=== PATIENT | female | born 1975 | race Caucasian/White ===

== ENCOUNTER → 2019-03-27 | Outpatient (CLI) | payer OTHER ==
--- NOTE | 2019-03-27 14:34 | MM ---
Reason for exam: screening (asymptomatic). Last mammogram was performed 7 years and 8 months ago. History: Patient has history of other cancer at age 32. Physical Findings: A clinical breast exam by your physician is recommended on an annual basis and results should be correlated with mammographic findings. MG Screening Mammo w CAD Bilateral CC and MLO view(s) were taken. Prior study comparison: August 10, 2011, mammogram, performed at [facility]. August 01, 2011, mammogram, performed at [facility]. The breast tissue is heterogeneously dense. This may lower the sensitivity of mammography. There are benign appearing round calcifications in the right breast. There is no discrete abnormality. ASSESSMENT: Benign, BI-RAD 2 RECOMMENDATION: Routine screening mammogram of both breasts in 1 year.
== END | disposition home or self-care (01) ==
LOC: RADMAMWWP 06:51
PROVIDERS: ATTEND Family Medicine
DX: Z12.31 Encounter for screening mammogram for malignant neoplasm of breast (principal)
CPT/HCPCS: 77067

== ENCOUNTER 2019-10-04 18:11 | Emergency (ER) | payer BC, OTHER ==
[2019-10-04] MEDS ORDERED: KETOROLAC 30 MG/ML 1 ML VIAL IM STA (18:44)
[2019-10-04 19:15] LABS: Appearance,Urine Cloudy (Clear); Bacteria,Urine Rare /hpf; Bilirubin,Urine Negative (Negative); Blood,Urine Negative (Negative); Color,Urine Yellow; Glucose,Urine (UA) Negative (Negative); Leukocyte Esterase,Urine Negative (Negative); Mucus,Urine Many /hpf; Nitrite,Urine Negative (Negative); Protein,Urine Trace (Negative); RBC,Urine 1 /hpf (0-5); Specific Gravity,Urine 1.031 (1.001-1.035); Squamous Epithelial Cell,Urine 9 /hpf (0-4); WBC,Urine 5 /hpf (0-5)
--- NOTE | 2019-10-04 19:16 | XR ---
EXAMINATION TYPE: XR chest 2V DATE OF EXAM: 10/04/2019 COMPARISON: NONE HISTORY: Cough and fever TECHNIQUE: 2 views FINDINGS: Heart and mediastinum are normal. Lungs are clear. Diaphragm is normal. Bony thorax appears normal. IMPRESSION: Normal chest.
[2019-10-04 19:31] VITALS: RESP 18
--- NOTE | 2019-10-04 19:39 | ED ---
Back Pain HPI - General Source: patient Limitations: no limitations <Andrés Jung - Last Filed: 10/05/19 14:36> <Nimco Bui - Last Filed: 10/06/19 11:35> - General Chief Complaint: Back Pain/Injury Stated Complaint: back pain/fever Time Seen by Provider: 10/04/19 18:22 - History of Present Illness Initial Comments: Patient is a 44-year-old female presenting to the emergency department with a chief complaint of back pain. Patient reports the symptoms began about 2 days ago with gradual increase in severity. Patient states pain is located in the lower lumbar region and is radiating distally to the hips and thighs. Patient r eports prior to onset of symptoms, she was cleaning the pool lifting large amounts of debris. Patient reports the pain is exacerbated with left to right rotation and when laying flat. Patient also reports she developed a dry cough over the last day. States she fell warm and has been alternating between Tylenol and Motrin for a possible fever. Patient denies any neck stiffness, severe headaches, sore throat, chest pain or shortness of breath. Denies exposure to known Covid patient. (Andrés Jung) - Related Data Home Medications Medication Instructions Recorded Confirmed Citalopram Hydrobromide [CeleXA] 20 mg PO DAILY 11/06/14 11/06/14 Previous Rx's Medication Instructions Recorded Hydrocodone/Acetaminophen [[place] 1 each PO Q6HR PRN #20 tab 11/06/14 5-325] Allergies Allergy/AdvReac Type Severity Reaction Status Date / Time No Known Allergies Allergy Verified 10/04/19 18:18 Review of Systems ROS Other: All systems not noted in ROS Statement are negative. <Andrés Jung - Last Filed: 10/05/19 14:36> ROS Other: All systems not noted in ROS Statement are negative. <Nimco Bui - Last Filed: 10/06/19 11:35> ROS Statement: Those systems with pertinent positive or pertinent negative responses have been documented in the HPI. Past Medical History Past Medical History: Seizure Disorder History of Any Multi-Drug Resistant Organisms: None Reported Past Surgical History: Appendectomy, Hysterectomy Past Psychological History: No Psychological Hx Reported, Anxiety, Bipolar Smoking Status: Former smoker Past Alcohol Use History: Occasional Past Drug Use History: None Reported <Andrés Jung - Last Filed: 10/05/19 14:36> General Exam Limitations: no limitations General appearance: alert, in no apparent distress Head exam: Present: atraumatic, normocephalic, normal inspection Eye exam: Present: normal appearance, PERRL, EOMI Pupils: Present: normal accommodation ENT exam: Present: normal exam, normal oropharynx, mucous membranes moist Neck exam: Present: normal inspection, full ROM. Absent: tenderness, meningismus, other (No nuchal rigidity.) Respiratory exam: Present: normal lung sounds bilaterally. Absent: respiratory distress, wheezes Cardiovascular Exam: Present: regular rate, normal rhythm, normal heart sounds Extremities exam: Present: normal inspection, full ROM, normal capillary refill, other (+2 ulnar and radial pulses bilaterally.) Back exam: Present: normal inspection, full ROM, tenderness, paraspinal tenderness (Bilateral paraspinal tenderness in the lumbar region radiating dista lly. Pain worse right versus left. Positive leg raise test in her right leg.). Absent: CVA tenderness (R), CVA tenderness (L), vertebral tenderness Neurological exam: Present: alert, oriented X3 Psychiatric exam: Present: normal affect, normal mood Skin exam: Present: warm, dry, intact, normal color <Andrés Jung - Last Filed: 10/05/19 14:36> Course Vital Signs 10/04/19 10/04/19 10/04/19 18:16 19:30 20:46 Temperature 98.9 F 98.9 F 97.4 F L Pulse Rate 91 71 65 Respiratory 16 18 18 Rate Blood Pressure 134/85 135/86 144/88 O2 Sat by Pulse 98 97 100 Oximetry Medical Decision Making - Lab Data Result diagrams: 10/04/19 20:00 10/04/19 20:00 <Andrés Jung - Last Filed: 10/05/19 14:36> - Lab Data Result diagrams: 10/04/19 20:00 10/04/19 20:00 <Nimco Bui - Last Filed: 10/06/19 11:35> - Medical Decision Making Patient is a 44-year-old female presenting to the emergency department with a chief complaint of back pain. This was after patient was working heavily by cleaning the pool. On exam patient has some paraspinal lumbar tenderness that radiates along the lateral aspect of the lower extremities. No saddle anest hesia or urinary or bowel incontinence. No red flags. UA showed plus for ketones. Patient does report drinking less water than usual. CBC CMP unremarkable. Patient was given 2 L of IV bolus. A reevaluation patient reports the back pain has resolved. I suspect some of these musclelike spasms w ere secondary to dehydration. Patient advised to drink lots of fluids. Strict return parameters were thoroughly discussed with patient was understanding and agreeable. Case discussed with physician. (Andrés Jung) I was available for consultation in the emergency department. The history and physical exam were done by the midlevel provider. [facility] I reviewed the case with the midlevel provider and based on their presentation of the patient, I agree with the assessment, medical decision making and plan of care as documented. Patient has no saddle anesthesia or bowel/bladder incontinence. No sgins of cauda equina. Chart was dictated using [employer] dictation software. Attempts were made to correct any dictation errors however some typographical errors may persist. Patient was seen during a national state of emergency due to the Covid-19 pandemic. (Nimco Bui) - Lab Data Lab Results 10/04/19 10/04/19 10/04/19 Range/Units 18:56 20:00 20:00 WBC 7.7 (3.8-10.6) k/uL RBC 5.06 (3.80-5.40) m/uL Hgb 14.2 (11.4-16.0) gm/dL Hct 42.4 (34.0-46.0) % MCV 83.7 (80.0-100.0) fL MCH 28.1 (25.0-35.0) pg MCHC 33.6 (31.0-37.0) g/dL RDW 12.5 (11.5-15.5) % Plt Count 190 (150-450) k/uL Neutrophils % 72 % Lymphocytes % 18 % Monocytes % 6 % Eosinophils % 3 % Basophils % 0 % Neutrophils # 5.5 (1.3-7.7) k/uL Lymphocytes # 1.4 (1.0-4.8) k/uL Monocytes # 0.4 (0-1.0) k/uL Eosinophils # 0.2 (0-0.7) k/uL Basophils # 0.0 (0-0.2) k/uL Sodium 139 (137-145) mmol/L Potassium 4.4 (3.5-5.1) mmol/L Chloride 107 (98-107) mmol/L Carbon Dioxide 24 (22-30) mmol/L Anion Gap 8 mmol/L BUN 13 (7-17) mg/dL Creatinine 0.78 (0.52-1.04) mg/dL Est GFR (CKD-EPI)AfAm >90 (>60 ml/min/1.73 sqM) Est GFR (CKD-EPI)NonAf >90 (>60 ml/min/1.73 sqM) Glucose 93 (74-99) mg/dL Calcium 9.8 (8.4-10.2) mg/dL Total Bilirubin 0.7 (0.2-1.3) mg/dL AST 24 (14-36) U/L ALT 13 (4-34) U/L Alkaline Phosphatase 72 (38-126) U/L Total Protein 8.0 (6.3-8.2) g/dL Albumin 4.7 (3.5-5.0) g/dL Urine Color Yellow Urine Appearance Cloudy H (Clear) Urine pH 6.0 (5.0-8.0) Ur Specific [place] 1.031 (1.001-1.035) Urine Protein Trace H (Negative) Urine Glucose (UA) Negative (Negative) Urine Ketones 4+ H (Negative) Urine Blood Negative (Negative) Urine Nitrite Negative (Negative) Urine Bilirubin Negative (Negative) Urine Urobilinogen 2.0 (<2.0) mg/dL Ur Leukocyte Esterase Negative (Negative) Urine RBC 1 (0-5) /hpf Urine WBC 5 (0-5) /hpf Ur Squamous Epith Cells 9 H (0-4) /hpf Urine Bacteria Rare H (None) /hpf Urine Mucus Many H (None) /hpf Disposition Is patient prescribed a controlled substance at d/c from ED?: No Time of Disposition: 21:29 <Andrés Jung - Last Filed: 10/05/19 14:36> <Nimco Bui - Last Filed: 10/06/19 11:35> Clinical Impression: Strain of lumbar region, Dehydration Disposition: HOME SELF-CARE Condition: Stable Instructions (If sedation given, give patient instructions): Dehydration (ED), Acute Low Back Pain (ED) Additional Instructions: Follow with her primary care. Return to emergency department if symptoms worsen. Referrals: Sawyer Sepulveda MD [Primary Care Provider] - 1-2 days
[2019-10-04 19:49] LABS: Ketones,Urine 4+ (Negative)
[2019-10-04] MEDS ORDERED: SODIUM CHLORIDE 0.9% 2,000 ML IV STA (19:52)
[2019-10-04 20:10] LABS: Basophils % (A) 0 %; Eosinophils # (A) 0.2 k/uL (0-0.7); Eosinophils % (A) 3 %; HCT 42.4 % (34.0-46.0); HGB 14.2 gm/dL (11.4-16.0); Lymphocytes # (A) 1.4 k/uL (1.0-4.8); Lymphocytes % (A) 18 %; MCH 28.1 pg (25.0-35.0); MCHC 33.6 g/dL (31.0-37.0); MCV 83.7 fL (80.0-100.0); Mean Platelet Volume 9.5; Monocytes # (A) 0.4 k/uL (0-1.0); Monocytes % (A) 6 %; Neutrophils # (A) 5.5 k/uL (1.3-7.7); Neutrophils % (A) 72 %; Platelet Count 190 k/uL (150-450); RBC 5.06 m/uL (3.80-5.40); RDW 12.5 % (11.5-15.5); WBC 7.7 k/uL (3.8-10.6)
[2019-10-04 20:20] LABS: ALT 13 U/L (4-34); AST 24 U/L (14-36); African American GFR (CKD) >90 (>60 ml/min/1.73 sqM); Albumin 4.7 g/dL (3.5-5.0); Alkaline Phosphatase 72 U/L (38-126); Anion Gap 8 mmol/L; Blood Urea Nitrogen 13 mg/dL (7-17); Calcium 9.8 mg/dL (8.4-10.2); Carbon Dioxide 24 mmol/L (22-30); Chloride 107 mmol/L (98-107); Glucose 93 mg/dL (74-99); Non-African American GFR(CKD) >90 (>60 ml/min/1.73 sqM); Potassium 4.4 mmol/L (3.5-5.1); Sodium 139 mmol/L (137-145); Total Bilirubin 0.7 mg/dL (0.2-1.3)
[2019-10-04 20:47] VITALS: BP 144/88; PULSE 65; TEMP 97.4
== END 2019-10-04 21:34 | disposition home or self-care (01) ==
LOC: EC 18:11
DX: S39.012A Strain of muscle, fascia and tendon of lower back, initial encounter (principal); E86.0 Dehydration; R50.9 Fever, unspecified; R05 Cough; F41.9 Anxiety disorder, unspecified; Z87.891 Personal history of nicotine dependence; Z79.899 Other long term (current) drug therapy; X50.0XXA Overexertion from strenuous movement or load, initial encounter; Y93.89 Activity, other specified
CPT/HCPCS: 36415; 80053; 85025; 81001; 71046; 99283; 96360; 96361; 96372; J1885